=== PATIENT | female | born 1950 | race Caucasian/White ===

== ENCOUNTER 2017-12-02 13:35 | Day surgery (SDC) | payer MEDICARE, OTHER ==
[~2017-12-02] VITALS: Ht 165.1 cm; Wt 67.2 kg
[~2017-12-02 13:35] MED LIST: CHOL10002; Coq-1030 MG; FISH OIL 1,0001 EAC1; Finacea50 GM; Hair, Skin & N1 EACH; Ketoconazole15 GM; MERIBIN5 MG; MYRBETRIQ50 MG; PROBIOTIC1 EAC1
[2017-12-02] MEDS ORDERED: METR59TL (14:21)
[2017-12-02] MEDS ORDERED: TUMERIC (14:21)
[2017-12-02] MEDS ORDERED: L-LYSINE500 MG PO (14:22)
[2017-12-02] MEDS ORDERED: Biotin300 MCG PO (14:22)
[2017-12-02] MEDS ORDERED: MELA3 PO (14:22)
== END 2017-12-02 18:02 | disposition home or self-care (01) ==
LOC: ORSCSDS 13:35
PROVIDERS: Orthopaedic Surgery
PROC: 0SCD4ZZ Extirpation of Matter from Left Knee Joint, Percutaneous Endoscopic Approach (ICD-10-PCS; principal; 2017-12-02 15:45)
PROC: 0SBD4ZZ Excision of Left Knee Joint, Percutaneous Endoscopic Approach (ICD-10-PCS; principal; 2017-12-02 15:45)
PROC: 0MNP4ZZ Release Left Knee Bursa and Ligament, Percutaneous Endoscopic Approach (ICD-10-PCS; principal; 2017-12-02 15:45)
DX: M23.262 Derangement of other lateral meniscus due to old tear or injury, left knee (principal); M23.222 Derangement of posterior horn of medial meniscus due to old tear or injury, left knee; M22.42 Chondromalacia patellae, left knee; M17.12 Unilateral primary osteoarthritis, left knee; M23.42 Loose body in knee, left knee; Z79.899 Other long term (current) drug therapy
CPT/HCPCS: J0171; J0690; J1100; J1885; J2405; J7120

== ENCOUNTER → 2019-01-28 | Outpatient (CLI) | payer MEDICARE, OTHER ==
[~2019-01-28] MED LIST changes: +Biotin300 MCG PO; +L-LYSINE500 MG PO; +MELA3 PO; +METR59TL; +TUMERIC
== END ==
LOC: LAB SHORT 16:44 → LAB 16:44
DX: S21.209A Unspecified open wound of unspecified back wall of thorax without penetration into thoracic cavity, initial encounter (principal); L08.9 Local infection of the skin and subcutaneous tissue, unspecified
CPT/HCPCS: 87070; 87205

== ENCOUNTER 2019-10-14 05:52 | Day surgery (SDC) | payer MEDICARE, OTHER ==
[~2019-10-14] VITALS: Ht 165.1 cm; Wt 67.7 kg
[~2019-10-14 05:52] MED LIST changes: -CHOL10002; -Coq-1030 MG; +Coq-1030 MG PO; -FISH OIL 1,0001 EAC1; +FISH OIL 1,0001 EAC1 PO; -Hair, Skin & N1 EACH; +Hair, Skin & N1 EACH PO; -PROBIOTIC1 EAC1; +PROBIOTIC1 EAC1 PO; +VITAMIN D325 MCG PO
--- NOTE | 2019-10-14 08:49 | NUR ---
"[employer] | REPORT TO ALEXANDRE OSPINA VSS. A/O. DENIES NAUSEA. PAIN 12/30. SITE C/D/I. STATES SHE HAS TO GO THE BATHROOM. NO ISSUES."
--- NOTE | 2019-10-14 09:22 | NUR ---
LATE CHARTING. Ambulatory in Day Surgery History, Chart, Medications and Allergies reviewed before start of procedure.Lungs clear T/O to Auscultation. Patient confirms NPO status and agrees with scheduled surgery. Patient States Post-Procedure ride home has been arranged.
== END 2019-10-14 10:05 | disposition home or self-care (01) ==
LOC: ORSCMMR 05:52 → ORD 07:30 → ORSCMMR 07:30
PROVIDERS: Surgery
PROC: 0WQF0ZZ Repair Abdominal Wall, Open Approach (ICD-10-PCS; principal; 2019-10-14 07:30)
DX: K43.9 Ventral hernia without obstruction or gangrene (principal)
CPT/HCPCS: A9270-GY; J0690; J2250; J2405; J2710; J3010; J7120

== ENCOUNTER 2024-03-17 10:13 | Emergency (ER) | payer MEDICARE, OTHER ==
[~2024-03-17] VITALS: Ht 165.1 cm; Wt 65.8 kg
[~2024-03-17 10:13] MED LIST changes: +COLLAGEN 15001 EACH PO; +GLUC500 PO; +JOINT SUPPLEMENT PO; +MAGNESIUM OXID500 MG PO; +TUMERIC PO
[2024-03-17 10:41] LABS: BASOPHILS ABSOLUTE AUTO 0.05 K/mm3 (0.00-0.23); BASOPHILS PERCENT AUTO 1 % (0-2); EOSINOPHILS ABSOLUTE AUTO 0.03 K/mm3 (0.00-0.68); EOSINOPHILS PERCENT AUTO 1 % (0-6); Hematocrit 47.2 % (33.0-51.0); Hemoglobin 15.4 g/dL (11.5-16.0); IMMATURE GRAN ABSOLUTE AUTO 0.02 K/mm3 (0.00-0.10); IMMATURE GRAN PERCENT AUTO 0 % (0-1); LYMPHOCYTES ABSOLUTE AUTO 1.46 K/mm3 (0.84-5.20); LYMPHOCYTES PERCENT AUTO 27 % (21-46); MONOCYTES ABSOLUTE AUTO 0.53 K/mm3 (0.16-1.47); MONOCYTES PERCENT AUTO 10 % (4-13); Mean Corpuscular HGB 28.3 pg (26.0-34.0); Mean Corpuscular HGB Conc 32.6 g/dL (31.5-36.5); Mean Corpuscular Volume 87 fL (80-100); Mean Platelet Volume 11.2 fL (9.1-12.4); NEUTROPHILS ABSOLUTE AUTO 3.42 K/mm3 (1.96-9.15); NEUTROPHILS PERCENT AUTO 62 % (41-73); Platelet Count 228 K/mm3 (150-400); RDW Coefficient Variation 13.6 % (11.7-14.2); RDW Standard Deviation 43.4 fL (35.1-46.3); Red Blood Cell Count 5.45 M/mm3 (3.80-5.20); White Blood Cell Count 5.51 K/mm3 (4.00-11.30)
[2024-03-17 11:02] LABS: Albumin, Blood 3.9 g/dL (3.4-5.0); Albumin/Globulin Ratio 1.1 (0.8-1.8); Bun/Creatinine Ratio 21.7 (12.0-20.0); Calcium, Blood 9.6 mg/dL (8.5-10.1); Creatinine, Blood 0.74 mg/dL (0.40-1.00); Globulin, Blood 3.6 g/dL (2.2-4.0); Potassium, Blood 3.8 mmol/L (3.5-5.5); Total Protein, Blood 7.5 g/dL (6.4-8.2)
--- NOTE | 2024-03-17 11:18 | NUR ---
Upon patient's request, I visited her in the ER waiting room. She is tearful and tells me about the of her spouse 4 mos ago. She also explains about the of her son several yrs ago. She states that she was sent over to the hospital because of cardiac findings in the Urgent Care facility. She talks about her fears. I normalized her struggle and provided therapeutic listening, grief support, anxiety containment and prayer. Patient responded well and showed signs of being comforted and having greater peace. I will continue to remain available to patient and family.
[2024-03-17 13:45] VITALS: BP 134/79
== END 2024-03-17 13:46 | disposition home or self-care (01) ==
LOC: ER 10:13
PROVIDERS: Physician Assistant
DX: R94.31 Abnormal electrocardiogram [ECG] [EKG] (principal); R42 Dizziness and giddiness; Z79.899 Other long term (current) drug therapy
CPT/HCPCS: 71046; 80053; 83690; 84484; 85025; 93005; 93010; 99285-25

== ENCOUNTER → 2024-05-10 | Outpatient (CLI) | payer MEDICARE, OTHER ==
[2024-05-10 08:57] LABS: BASOPHILS ABSOLUTE AUTO 0.06 K/mm3 (0.00-0.23); BASOPHILS PERCENT AUTO 1 % (0-2); EOSINOPHILS ABSOLUTE AUTO 0.04 K/mm3 (0.00-0.68); EOSINOPHILS PERCENT AUTO 1 % (0-6); Hemoglobin 15.6 g/dL (11.5-16.0); IMMATURE GRAN ABSOLUTE AUTO 0.01 K/mm3 (0.00-0.10); IMMATURE GRAN PERCENT AUTO 0 % (0-1); LYMPHOCYTES PERCENT AUTO 16 % (21-46); MONOCYTES ABSOLUTE AUTO 0.49 K/mm3 (0.16-1.47); MONOCYTES PERCENT AUTO 7 % (4-13); Mean Corpuscular HGB 28.9 pg (26.0-34.0); Mean Corpuscular HGB Conc 33.2 g/dL (31.5-36.5); Mean Corpuscular Volume 87 fL (80-100); Mean Platelet Volume 11.5 fL (9.1-12.4); NEUTROPHILS ABSOLUTE AUTO 5.21 K/mm3 (1.96-9.15); NEUTROPHILS PERCENT AUTO 75 % (41-73); Platelet Count 245 K/mm3 (150-400); RDW Coefficient Variation 14.3 % (11.7-14.2); RDW Standard Deviation 45.4 fL (35.1-46.3); Red Blood Cell Count 5.39 M/mm3 (3.80-5.20); White Blood Cell Count 6.91 K/mm3 (4.00-11.30)
[2024-05-10 09:18] LABS: Albumin, Blood 3.8 g/dL (3.4-5.0); Bilirubin, Total 2.4 mg/dL (0.1-1.0); Bun/Creatinine Ratio 10.7 (12.0-20.0); Calcium, Blood 9.8 mg/dL (8.5-10.1); Creatinine, Blood 0.84 mg/dL (0.40-1.00); Globulin, Blood 3.9 g/dL (2.2-4.0); Potassium, Blood 3.7 mmol/L (3.5-5.5); Thyroid Stimulating Hormone 3.05 uIU/mL (0.360-4.800); Total Protein, Blood 7.7 g/dL (6.4-8.2)
== END | disposition home or self-care (01) ==
LOC: LAB 08:52 → LAB SHORT 08:52
PROVIDERS: Physician Assistant
DX: I47.10 Supraventricular tachycardia, unspecified (principal); R53.83 Other fatigue
CPT/HCPCS: 80053; 84443; 84484; 85025; 85379